=== PATIENT | female | born 1990 | race Caucasian/White ===

== ENCOUNTER → 2020-12-18 | Outpatient (REF) | payer MEDICAID, OTHER, SELFPAY ==
[2020-12-18 12:34] LABS: HEMATOCRIT 36.8 % (36.0-47.0); HEMOGLOBIN 12.2 g/dl (12.0-15.5); MEAN CORPUSCULAR HGB CONC 33.2 g/dl (32.0-36.5); MEAN CORPUSCULAR VOLUME 93.6 fl (80.0-96.0); PLATELET COUNT, AUTOMATED 305 10^3/uL (150-450); RED BLOOD COUNT 3.93 10^6/uL (4.00-5.40); WHITE BLOOD COUNT 10.5 10^3/uL (4.0-10.0)
[2020-12-18 13:48] LABS: HEPATITIS C VIRUS ABY INDEX < 0.0 INDEX (<0.8); HIV 1&2 SCREEN CENTAUR NEGATIVE (NEGATIVE)
== END ==
LOC: M PLALAB 09:57
PROVIDERS: ATTEND Obstetrics & Gynecology
DX: O09.32 Supervision of pregnancy with insufficient antenatal care, second trimester (principal); Z3A.00 Weeks of gestation of pregnancy not specified

== ENCOUNTER → 2020-12-28 | Outpatient (CLI) | payer SELFPAY ==
--- NOTE | 2020-12-29 05:57 | REP ---
INDICATION: ANATOMY COMPARISON: None. TECHNIQUE: Transabdominal obstetrical ultrasound with color Doppler evaluation. FINDINGS: Examination demonstrates a single live intrauterine in cephalic presentation. motion is identified by technologist. Placenta is noted anterior and grade 0 without evidence for placenta previa or abruption. Amniotic fluid volume is normal. Cervix measures 3.7 cm in length and appears closed.. Gestational age by LMP 24 weeks 6 days with RAMAKRISHNA 04/13/2021. Gestational age by current measurements 24 weeks 6 days with RAMAKRISHNA 04/13/2021. FHR equals 157 beats per minute. Estimated weight 733 grams (50thpercentile). Anatomical assessment demonstrates normal structures including cranium, choroid plexus, cavum, cerebellum/posterior fossa, facial features, lungs, diaphragm, stomach, cord insertion/three-vessel cord, kidneys/bladder, spine, and extremities. IMPRESSION: Single live intrauterine in cephalic presentation demonstrating appropriate interval growth. Limited evaluation of the heart. Remainder of the anatomical assessment is complete and normal. <Electronically signed by Jacky Cloud > 12/29/20 [id number]
== END ==
LOC: M WHC 13:57
PROVIDERS: ATTEND Obstetrics & Gynecology
DX: O09.32 Supervision of pregnancy with insufficient antenatal care, second trimester (principal); Z3A.24 24 weeks gestation of pregnancy

== ENCOUNTER → 2021-02-22 | Outpatient (CLI) | payer MEDICAID ==
--- NOTE | 2021-02-22 16:06 | REP ---
INDICATION: F/U ANATOMY. FOLLOW-UP FOUR-CHAMBER HEART COMPARISON: None. TECHNIQUE: Transabdominal FINDINGS: Multiple ultrasonographic images of the gravid uterus shows a single living intrauterine gestation in the cephalic presentation. Doppler interrogation of the heart shows a heart rate of 133 beats per minute. The placenta is anterior and not low-lying. The cervix measures 3.9 cm in length and is closed. The subjective amniotic fluid volume is somewhat increased, however, the calculated amniotic fluid index is 14.1 which is within the expected range of 8.3-24.5. BPD: 8.3 cm 33 weeks 2 days HC: 30.0 cm 33 weeks 2 days AC: 28.9 cm 32 weeks 6 days FL: 6.4 cm 33 weeks 0 days The estimated weight is 2098 g which is at the 44th percentile for a 32 week 6 day gestational age. Doppler interrogation of the umbilical artery shows an A\B ratio of 3.04. This is within the normal range. Four-chamber heart was seen to be within normal limits. IMPRESSION: Single living intrauterine gestation as described above an estimated gestational age of 32 weeks 6 days via composite criteria and an estimated date of delivery of 04/13/2021 by today's exam. <Electronically signed by Ger Bhakta > 02/22/21 [id number]
== END ==
LOC: M WHC 14:51
PROVIDERS: ATTEND Obstetrics & Gynecology
DX: Z34.93 Encounter for supervision of normal pregnancy, unspecified, third trimester (principal); Z3A.33 33 weeks gestation of pregnancy

== ENCOUNTER → 2021-03-22 | Outpatient (REF) | payer OTHER, MEDICAID | LOC: M SFHCWAGY 13:13 | PROVIDERS: ATTEND Obstetrics & Gynecology | DX: Z34.93 Encounter for supervision of normal pregnancy, unspecified, third trimester (principal); Z3A.37 37 weeks gestation of pregnancy ==

== ENCOUNTER → 2021-03-22 | Outpatient (REF) | payer OTHER, MEDICAID | LOC: M PLALAB 11:28 | PROVIDERS: ATTEND Obstetrics & Gynecology | DX: Z34.93 Encounter for supervision of normal pregnancy, unspecified, third trimester (principal); Z3A.37 37 weeks gestation of pregnancy; Z53.9 Procedure and treatment not carried out, unspecified reason ==

== ENCOUNTER → 2021-04-03 | Outpatient (CLI) | payer OTHER ==
--- NOTE | 2021-04-03 09:52 | REP ---
INDICATION: UTERINE SIZE DATE DISCREPANCY,GROWTH COMPARISON: 02/22/2021 TECHNIQUE: Transabdominal obstetrical ultrasound with color Doppler evaluation. FINDINGS: Examination demonstrates a single live intrauterine in cephalic presentation. motion is identified by technologist. Placenta is noted anterior and grade 2 without evidence for placenta previa or abruption. Amniotic fluid volume is normal. Cervix measures 3.3 cm in length and appears closed.. Selected gestational age: 38 weeks 5 days with RAMAKRISHNA 04/12/2021. Gestational age by current measurements 37 weeks 2 days with RAMAKRISHNA 04/22/2021. FHR equals 125 beats per minute. BPD: 9.4 cm at 38 weeks 1 day HC: 33.0 cm at 37 weeks 4 days AC: 34.8 cm at 38 weeks 5 days FL: 7.2 cm at 37 weeks 0 days HL: 6.0 cm at 34 weeks 5 days HC/AC: 0.95 Estimated weight 3410 grams (53rdpercentile). RODNEY: 12.1 cm Umbilical cord SD ratio: 1.96 IMPRESSION: Single live advanced gestation in cephalic presentation. Appropriate interval growth noted. Amniotic fluid volume normal. <Electronically signed by Jacky Cloud > 04/03/21 [id number]
== END ==
LOC: M WHC 09:02
PROVIDERS: ATTEND Obstetrics & Gynecology
DX: O26.843 Uterine size-date discrepancy, third trimester (principal); Z3A.37 37 weeks gestation of pregnancy

== ENCOUNTER 2021-04-13 12:55 | Inpatient (IN) | payer OTHER, MEDICAID ==
[~2021-04-13] VITALS: Ht 167.6 cm; Wt 66.6 kg
[2021-04-13] VITALS (15 sets, daily range): BP systolic 106–150; BP diastolic 65–87
[2021-04-13] MEDS ORDERED: LACTATED RINGER'S 1000 ML IV ONE (15:50)
--- NOTE | 2021-04-13 15:51 | IPNPDOC ---
Text Note Date of Service The patient was seen on 04/13/21. NOTE Outpatient 30yo G1 RAMAKRISHNA 04/12/2021. Presents @ 40w1d with complaints of UC steadily since 1600 with light bloody show. Denies LOF. Fetus is active Breathing with UC Cat I tracing. UC 2-4 minutes initially, consistent with uterine irritability SVE /-1, light show Observed for 2 hours. No further cervical change Cat I tracing persists, contractions are further apart IV hydration and sedation provided. Will reassess Farnaz Bernabe CNM Apr 13, 2021 15:41
[2021-04-13] MEDS ORDERED: BUTORPHANOL 2 MG/ML INJ (J0595) IV ONE (16:45)
[2021-04-13] MEDS ORDERED: PROMETHAZINE INJ 25 MG/ML VIAL (J2550) IV ONE (16:45)
[2021-04-13] MEDS ORDERED: LR 1,000 ML IV SCH ×2 (16:45→19:40)
[2021-04-13] MEDS ORDERED: METHYLERGONOVINE MALEATE 0.2 MG/ML VIAL (J2210) IM PRN (19:40)
[2021-04-13] MEDS ORDERED: LIDOCAINE 1% MDV 20ML VIAL INFIL PRN (19:40)
[2021-04-13] MEDS ORDERED: OXYTOCIN DRIP 30 UNITS in IV 1 EA IV PRN (19:40)
--- NOTE | 2021-04-13 19:50 | HPEPDOC ---
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 BREAST: . ABDOMEN: Gravid and non-tender to touch. FETUS: Is vertex (VTX) by sterile vaginal examination (SVE), fetus is vertex (VTX) by Eliceo. EFW 8# HEART RATE: Regular rate and rhythm. LUNGS: Clear to auscultation (CTA). EXTREMITIES: No edema. No clonus. Deep tendon reflexes (DTRs) + 2. Vital Signs/I&O Vital Signs Date Time Temp Pulse Resp B/P (MAP) Pulse Ox O2 Delivery O2 Flow Rate FiO2 04/13/21 16:45 20 Laboratory Data 24H LABS Laboratory Tests 2 04/13/21 19:18: Serology Scanned Report Hepatitis B Testing Pertinent Laboratoy Data Blood Type: O+ RBC Antibody Screen: Negative HIV: Negative Hepatitis B: Negative Hepatitis C: Negative Rapid Plasma Reagin: Nonreactive Rubella: Immune Chlamydia/Gonorrhea: Negative Group B Streptococcus: Negative Anatomy Ultrasound Ultrasound Date: December 28, 2020 Placenta Location: Anterior Normal Anatomy: Yes Placenta Previa: No Estimated Weight (grams): 733 (50%) Other Ultrasounds 02/22/2021 Cephalic, anterior placenta, RODNEY 14.1, 2098gm, 44%, normal f/u anatomy 04/03/2021 Cephalic, anterior placenta, no previa. RODNEY 12.1, 3410gm 53% Steroid Therapy Steroid Therapy: No Vaginal Examination Dilation: 4 cm Effacement: 90% Station: -1 Cervical Consistency: Soft Cervical Position: Middle Presentation: Cephalic presentation Assessment Heart Rate (FHR): 145 Variability: Moderate Accelerations: Positive Decelerations: None Tocometer Contractions: Yes Frequency: regular, every 2-5 min. Duration: greater than 60 seconds Strength: palpated as moderate Assessment/Plan Assessment Alia is a 30-year-old (G)1 para (P)0-0-0-0 at 40+1 weeks by 2nd trimester ultrasound. Presents to Labor and Delivery (L&D) with complaints of contractions. Denies LOF, bleeding. Reports good activity. Plan Admit and orient. Data Visualization Developer and consent. Diet: regular. Group B Streptococcus (GBS) negative. Labs and intravenous (IV) per unit protocol. Counseled on Pitocin and induction of labor (IOL). Lactated Ringers (LR): Bolus 500 mL, then at 125 mL/hr. Plans epidural Anticipate normal spontaneous delivery (). C-S as appropriate. Farnaz Bernabe CNM Apr 13, 2021 19:44
[2021-04-13] MEDS ORDERED: FENTANYL 2MCG/ML ROPIVACAINE 0.2% IN 0.9% NACL 100ML IVBAG As Ordered ONE (19:51)
[2021-04-13 20:11] LABS: HEMATOCRIT 39.7 % (36.0-47.0); HEMOGLOBIN 13.2 g/dl (12.0-15.5); MEAN CORPUSCULAR HEMOGLOBIN 29.8 pg (27.0-33.0); MEAN CORPUSCULAR HGB CONC 33.2 g/dl (32.0-36.5); MEAN CORPUSCULAR VOLUME 89.6 fl (80.0-96.0); PLATELET COUNT, AUTOMATED 282 10^3/uL (150-450); RED BLOOD COUNT 4.43 10^6/uL (4.00-5.40); WHITE BLOOD COUNT 14.8 10^3/uL (4.0-10.0)
[2021-04-13] MEDS ORDERED: REFRIGERATOR IV KEYS XX PRN (20:40)
[2021-04-13] MEDS ORDERED: ONDANSETRON 4MG/2ML VIAL IV PRN (20:40)
[2021-04-13] MEDS ORDERED: ePHEDrine SULFATE 25 MG/5 ML(5MG/ML) SYRINGE IV PRN (20:40)
[2021-04-13] MEDS ORDERED: FENTANYL/ROPIVACAINE/NACL BAG 100 ML EPIDURAL SCH (20:40)
[2021-04-13] MEDS ORDERED: EPIDURAL/PCA KEYS XX PRN (20:40)
[2021-04-13] MEDS ORDERED: diphenhydrAMINE 50MG/ML VIAL (J1200) IV PRN (20:40)
[2021-04-13] MEDS ORDERED: NALOXONE INJ 0.4MG/1ML VIAL (J2310 PER 1MG) IV PRN (20:40)
[2021-04-13] MEDS ORDERED: EPIDURAL COMMENT XX SCH (20:40)
--- NOTE | 2021-04-13 21:40 | IPNPDOC ---
Text Note Date of Service The patient was seen on 04/13/21. NOTE Progress Comfortable with epidural Cat I tracing UC 3-5 minutes x60 seconds SVE 8/100/0, AROM moderate clear fluid Anticipate NSVB VS,Fishbone, I+O VS, Fishbone, I+O Laboratory Tests 04/13/21 20:03 Vital Signs Date Time Temp Pulse Resp B/P (MAP) Pulse Ox O2 Delivery O2 Flow Rate FiO2 04/13/21 16:45 20 Farnaz Bernabe CNM Apr 13, 2021 21:40
[2021-04-13] MEDS ORDERED: OXYTOCIN 30 UNITS IN 0.9% NaCl 500ML IV BAG (J2590) As Ordered ONE (23:14)
[2021-04-14] VITALS (8 sets, daily range): BP systolic 110–142; BP diastolic 62–89
[2021-04-14] MEDS ORDERED: LR 1,000 ML IV SCH (00:10)
[2021-04-14] MEDS ORDERED: OXYTOCIN DRIP 30 UNITS in IV 1 EA IV SCH (00:10)
[2021-04-14] MEDS ORDERED: IBUPROFEN 800 MG TAB PO PRN (00:10)
[2021-04-14] MEDS ORDERED: IBUPROFEN 600MG TAB PO PRN (00:10)
[2021-04-14] MEDS ORDERED: RHOGAM 300 MCG (1500 IU) INJ (J2790) IM SCH (00:10)
[2021-04-14] MEDS ORDERED: METHYLERGONOVINE MALEATE 0.2 MG TAB PO PRN (00:10)
[2021-04-14] MEDS ORDERED: DIBUCAINE 1% OINTMENT 30GM TOP PRN (00:10)
[2021-04-14] MEDS ORDERED: ONDANSETRON 4MG/2ML VIAL IV PRN (00:10)
[2021-04-14] MEDS ORDERED: ACETAMINOPHEN TAB 650MG DOSE (2X325MG) PO PRN (00:10)
[2021-04-14] MEDS ORDERED: ACETAMINOPHEN 500 MG TAB PO PRN (00:10)
[2021-04-14] MEDS ORDERED: DOCUSATE SODIUM 100MG CAPSULE PO PRN (00:10)
[2021-04-14] MEDS ORDERED: MEASLES,MUMPS,RUBELLA VACCINE INJ (MMR-II) (90707) SC SCH (00:10)
--- NOTE | 2021-04-14 00:22 | DNPDOC ---
[facility] Delivery Note Delivery Note DATE OF DELIVERY: 04/13/2021 TIME OF DELIVERY: 2344 Spontaneous vaginal delivery. STUDENT DEAN: Dr. Sukumar Guerrero DO FACOG ANESTHESIA: Epidural LACERATION: Second-degree ESTIMATED BLOOD LOSS: 200 mL. FINDINGS: 7 pound 10 ounce (3450 g) male infant, Score 9 and 9. DELIVERY SUMMARY: The active phase and second stage of labor progressed in normal fashion. The head delivered in the CALVIN position, and restituted LOT. No nuchal cord was noted. The anterior shoulder delivered with gentle downward guidance and the remainder of the body delivered with ease. The baby was placed on the patient's chest. Delayed cord clamping occurred for approximately 1 minute. The cord was then doubly clamped and cut. IV Pitocin was bolused to actively manage the third stage of labor. The placenta delivered intact without any difficulty within 10 minutes of delivery. The uterine fundus was noted to be firm and 2 cm below the umbilicus. The cervix, vagina, vulva and perineum were inspected. A second-degree laceration was noted and immediately repaired with 3-0 Vicryl in typical fashion. Excellent hemostasis was noted. Sponge, needle and instrument counts were correct per protocol. DO MOIZ Suero JONATHAN R. DO Apr 14, 2021 00:22
[2021-04-14] MEDS: PRENATAL VITAMINS CHEWABLE TABLET PO SCH (07:50)
--- NOTE | 2021-04-14 12:13 | IPNPDOC ---
Progress Note Date of Service: Apr 14, 2021 Progress Note SUBJECT: Status post . She has been ambulating, voiding spontaneously without issue and tolerating regular diet. Lochia decreasing/minimal. Pain is well-controlled. Denies headache, visual changes, right upper quadrant pain, shortness breath or chest pain. OBJECTIVE: VITAL SIGNS: Within normal limits, afebrile. Alert and oriented times three. Abdomen: Fundus firm at U-2. Soft, NTTP. ASSESSMENT: Status post uncomplicated spontaneous vaginal delivery. Vitals within normal limits, afebrile, hemodynamically stable with no evidence of infection. PLAN: Discharge to home tomorrow Tylenol and Motrin for pain. Routine instructions/precautions reviewed. Routine PP visit in 6 weeks in clinic. VS, I&O, 24H, Fishbone Vital Signs/I&O Vital Signs Date Time Temp Pulse Resp B/P (MAP) Pulse Ox O2 Delivery O2 Flow Rate FiO2 04/14/21 06:00 98.1 73 16 120/74 (89) 97 Room Air I&O- Last 24 Hours up to 6 AM 04/14/21 05:59 Intake Total 500 ml Output Total 800 ml Balance -300 ml Laboratory Data 24H LABS Laboratory Tests 2 04/13/21 19:18: Serology Scanned Report Hepatitis B Testing 04/13/21 20:03: Nucleated Red Blood Cells % (auto) 0.0 04/13/21 20:04: Syphilis Serology NONREACTIVE CBC/BMP Laboratory Tests 04/13/21 20:03 SHANICE BURTON DO Apr 14, 2021 12:13
[2021-04-15 06:00] VITALS: BP 126/80
[2021-04-15] MEDS: PRENATAL VITAMINS CHEWABLE TABLET PO SCH (07:38)
--- NOTE | 2021-04-15 11:52 | IPNPDOC ---
Progress Note Date of Service: Apr 15, 2021 Progress Note SUBJECT: Status post . She has been ambulating, voiding spontaneously without issue and tolerating regular diet. Lochia decreasing/minimal. Pain is well-controlled. Denies headache, visual changes, right upper quadrant pain, shortness breath or chest pain. OBJECTIVE: VITAL SIGNS: Within normal limits, afebrile. Alert and oriented times three. Abdomen: Fundus firm at U-2. Soft, NTTP. ASSESSMENT: Status post uncomplicated spontaneous vaginal delivery. Vitals within normal limits, afebrile, hemodynamically stable with no evidence of infection. PLAN: Discharge to home today. Tylenol and Motrin for pain. Routine instructions/precautions reviewed. Routine PP visit in 6 weeks in clinic. VS, I&O, 24H, Fishbone Vital Signs/I&O Vital Signs Date Time Temp Pulse Resp B/P (MAP) Pulse Ox O2 Delivery O2 Flow Rate FiO2 04/15/21 06:00 97.2 76 16 126/80 (95) 97 Room Air SHANICE BURTON DO Apr 15, 2021 11:52
== END 2021-04-15 13:30 | disposition home or self-care (01) | DRG 560 ==
LOC: M LDO 12:55 → M LDI 19:02 → M OBS 04-14 01:42
PROVIDERS: ADMIT Advanced Practice Midwife; ATTEND Advanced Practice Midwife
PROC: 10E0XZZ Delivery of Products of Conception, External Approach (ICD-10-PCS; principal; 2021-04-13)
PROC: 0KQM0ZZ Repair Perineum Muscle, Open Approach (ICD-10-PCS; 2021-04-13)
PROC: 10907ZC Drainage of Amniotic Fluid, Therapeutic from Products of Conception, Via Natural or Artificial Opening (ICD-10-PCS; 2021-04-13)
DX: O48.0 Post-term pregnancy (principal); Z37.0 Single live birth; Z3A.40 40 weeks gestation of pregnancy; O70.1 Second degree perineal laceration during delivery